=== PATIENT | female | born 1980 | race Caucasian/White ===

== ENCOUNTER 2019-05-09 14:14 | Outpatient (CLI) | payer OTHER ==
--- NOTE | 2019-05-09 14:50 | ULT ---
EXAM: Left lower extremity venous ultrasound HISTORY: Left lower extremity pain and edema for one month COMPARISON: None TECHNIQUE: Multiplanar grayscale and color Doppler images were obtained in a left lower extremity sussy ous ultrasound. Spectral analysis of the Doppler waveforms were performed. FINDINGS: The common femoral vein, profunda femoral vein, superficial femoral vein, and popliteal vei n are normal in appearance without visible thrombus. These vessels demonstrate normal compression, flow, and augmentation. The posterior tibial vein and greater saphenous vein are patent without evidence of thrombus. IMPRESSION: No evidence of DVT.
== END 2019-05-09 14:15 | disposition home or self-care (01) ==
LOC: ULT 14:14
PROVIDERS: ATTEND Physician Assistant
DX: R60.0 Localized edema (principal)
CPT/HCPCS: 80053; 80061; 84443; 85025

== ENCOUNTER 2021-03-04 22:31 | Emergency (ER) | payer BC ==
[~2021-03-04 22:31] MED LIST: Iopamidol-370 76% 500 ML 1 ML ONE
== END 2021-03-05 03:09 | disposition short-term general hospital (02) ==
LOC: ERS 22:31
DX: R19.04 Left lower quadrant abdominal swelling, mass and lump (principal)
CPT/HCPCS: 74177; Q9967